=== PATIENT | female | born 1975 | race Hispanic/Latino ===

== ENCOUNTER → 2018-04-03 | Outpatient (CLI) | payer BC | END | disposition home or self-care (01) | LOC: SHCH 13:37 | PROVIDERS: ATTEND Internal Medicine Cardiovascular Disease | DX: I10 Essential (primary) hypertension (principal) | CPT/HCPCS: 93306 ==

== ENCOUNTER → 2018-09-17 | Outpatient (CLI) | payer BC | END | disposition home or self-care (01) | LOC: SHCH 08:23 | PROVIDERS: ATTEND Internal Medicine Cardiovascular Disease | DX: I65.23 Occlusion and stenosis of bilateral carotid arteries (principal) | CPT/HCPCS: 93880 ==

== ENCOUNTER 2018-12-25 09:17 | Day surgery (SDC) | payer BC ==
[2018-12-23 11:36] LABS: APPEARANCE,URINE Clear (CLEAR); BASOPHILS % (AUTO) 0.8 % (0.0-5.0); BILIRUBIN,URINE Negative (NEGATIVE); COLOR,URINE Yellow (YELLOW); EOSINOPHILS % (AUTO) 1.1 % (0.0-8.0); GLUCOSE, URINE (UA) Negative (NEGATIVE); HEMATOCRIT 54.6 % (36-48); KETONES,URINE Negative (NEGATIVE); LEUKOCYTE ESTERASE ,URINE Trace (NEGATIVE); LYMPHOCYTES % (AUTO) 35.9 % (21.0-51.0); MEAN CORPUSCULAR HEMOGLOBIN 28.3 pg (27.0-33.0); MEAN CORPUSCULAR HGB CONC 33.4 g/dL (32.0-36.0); MEAN CORPUSCULAR VOLUME 84.9 fL (79-99); MONOCYTES % (AUTO) 4.3 % (3.0-13.0); NEUTROPHILS % (AUTO) 57.9 % (40.0-77.0); NITRATE,URINE Negative (NEGATIVE); NUCLEATED RED BLOOD CELLS 0.2 % (0.0-0.19); OCCULT BLOOD,URINE Negative (NEGATIVE); PLATELET COUNT (AUTO) 320 K/uL (130-400); PROTEIN,URINE Negative (NEGATIVE); RED BLOOD CELL COUNT(AUTO) 6.43 MIL/uL (4.00-5.50); RED CELL DISTRIBUTION WIDTH 15.4 % (11.0-15.5); WHITE BLOOD COUNT (AUTO) 7.7 K/uL (4.8-10.8)
[2018-12-23 11:43] LABS: CREATININE 0.8 mg/dL (0.5-1.5); POTASSIUM 3.4 mmol/L (3.5-5.1)
[2018-12-23 11:45] LABS: INR 0.96 (0.85-1.15); PROTHROMBIN TIME 10.1 SEC (9.6-11.6)
[2018-12-23 11:56] LABS: B-TYPE NATRIURETIC PEPTIDE 21 pg/mL (0-100)
[2018-12-23 12:17] VITALS: BP 133/74
[2018-12-23 12:18] LABS: BACTERIA,URINE Rare /HPF (None Seen); SQUAMOUS EPITHELIAL CELL,UR Rare /HPF (0-2); WBC,URINE 0-1 /HPF (0-1)
--- NOTE | 2018-12-24 16:43 | NUR ---
ABNORMAL LABS ABNORMAL LABS REPORTED TO RACHID EUGENE H/H 18.2/54.6, POTASSIUM 3.4, UA LEUKEST TRACE, NEG NITRATES, URBC 2-5. ORDERS TO REPEAT BMP IN AM UPON ARRIVAL TO UNIT.
[~2018-12-25] VITALS: Ht 157.5 cm; Wt 90.5 kg
[2018-12-25] VITALS (9 sets, daily range): BP systolic 121–149; BP diastolic 67–90
[~2018-12-25 09:17] MED LIST: AMLO5TAB9 PO; HYDR25TA PO; LOSA100T58 PO
[2018-12-25] MEDS ORDERED: SODIUM CHLORIDE 0.9% 1000ML 1,000 ML IV ONE (09:41)
[2018-12-25 09:45] LABS: POTASSIUM 4.2 mmol/L (3.5-5.1)
--- NOTE | 2018-12-25 11:10 | NUR ---
PATIENT BACK FROM HELICOPTER ENGINEER WITH TR BAND ON RIGHT WRIST Addendum: 12/25/18 at 1515 by ELIS PENNINGTON RN RN ERROR ON PT. DOCUMENTATION.
[2018-12-25] MEDS ORDERED: IOHEXOL 350 MG/ML 100ML INFUS..BTL IV ONE ×2 (13:10→13:11)
[2018-12-25] MEDS ORDERED: IOHEXOL-350 50ML VIAL IV ONE (13:10)
[2018-12-25] MEDS ORDERED: LIDOCAINE HCL 2% 20ML ONE (13:10)
[2018-12-25] MEDS ORDERED: NITROGLYCERIN 5 MG/ML 10 ML VIAL IV ONE (13:10)
--- NOTE | 2018-12-25 15:13 | NUR ---
PT LEFT TO ENVIRONMENTAL PROJECT MANAGER VIA BED BY NATALIIA/JUAN DANIEL
[2018-12-25] MEDS ORDERED: HEPARIN SODIUM 1000UNIT/ML 10ML VIAL ONE (15:39)
[2018-12-25] MEDS ORDERED: FENTANYL CITRATE PF 50 MCG/1 ML 2ML VIAL ONE (15:55)
[2018-12-25] MEDS ORDERED: MIDAZOLAM HCL 1 MG/ML 2ML VIAL ONE (15:55)
[2018-12-25] MEDS ORDERED: DOBUTAMINE 250MG/D5 250ML 250 ML IV ONE (16:09)
[2018-12-25] MEDS ORDERED: SODIUM CHLORIDE 0.9% 1000ML 1,000 ML IV SCH (16:54)
[2018-12-25] MEDS ORDERED: METOPROLOL TARTRATE 1 MG/ML 5ML VIAL IV PRN (17:00)
[2018-12-25] MEDS ORDERED: GLUCAGON 1MG KIT 1 MG ML IM PRN (17:00)
[2018-12-25] MEDS ORDERED: HYDRALAZINE HCL 20 MG/ML VIAL IV PRN (17:00)
[2018-12-25] MEDS ORDERED: ACETAMINOPHEN-CODEINE 300/30MG TAB PO PRN (17:00)
[2018-12-25] MEDS ORDERED: NITROGLYCERIN 0.4 MG SL TAB SL PRN (17:00)
[2018-12-25] MEDS ORDERED: DEXTROSE 50%-WATER 50 ML DISP.SYRIN IV PRN (17:00)
--- NOTE | 2018-12-25 17:48 | NUR ---
RECEIVE PT RECEIVED FROM CAPACITOR REPAIRER VIA BED. UPON ARRIVAL TO ROOM PT COMPLAINING OF TENDERNESS TO CATH SITE WHEN TOUCHED UPON ASSESSMENT. PT STATES SCORE OF 5, PT AWARE THAT SHE WAS GIVEN IV PAIN MED IN [facility]ACIT[facility] REPAIR[facility]. PT POSITIONED COMFORTABLY. PT WILL LET ME KNOW WHEN IN NEED OF PAIN MEDICINE. WILL CONTINUE TO MONITOR PT. CATH SITE TO RIGHT GROIN SOFT, DRESSING DRY AND INTACT, NO OOZING NO HEMATOMA NOTED. INSTRUCTED TO KEEP RIGHT LEG STRAIGHT AND NOT TO ELEVATE HEAD. VERBALIZED UNDERSTANDING.
--- NOTE | 2018-12-25 18:05 | NUR ---
ASSESS CHECKED UP ON PT. PT IS CALM, NOT IN ANY APPARENT DISTRESS. PT STATES SHE FEELS BETTER. CATH SITE REMAINS SOFT, DRESSING DRY AND INTACT, DID NOT COMPLAIN OF TENDERNESS WHEN SITE TOUCHED. NO OOZING NO HEMATOMA NOTED.
--- NOTE | 2018-12-25 18:30 | NUR ---
DIET PT TOLERATED DIET WELL, ASSISTED PT.
--- NOTE | 2018-12-25 19:00 | NUR ---
ASSESS PT SUPINE ON BED, NOT IN ANY APPARENT DISTRESS. PT STATES SHE FEELS BETTER, PAIN TO CATH SITE RELIEVED.
--- NOTE | 2018-12-25 20:00 | NUR ---
DISCHARGE PT DISCHARGED VIA WHEELCHAIR WITH . STABLE. NO COMPLAINTS MADE. CATH SITE REMAINED SOFT. DRESSING DRY AND INTACT, NO OOZING NO HEMATOMA NOTED. DISCHARGE INSTRUCTIONS GIVEN TO , ALSO DEMONSTRATED TO ON HOW TO MONITOR CATH SITE FOR BLEEDING, HEMATOMA. VERBALIZED UNDERSTANDING.
== END 2018-12-25 20:00 | disposition home or self-care (01) ==
LOC: DAH 09:17 → EDSTATUS 10:00 → DAH 20:00
PROVIDERS: ATTEND Internal Medicine Cardiovascular Disease
DX: R09.02 Hypoxemia (principal); R00.2 Palpitations; I10 Essential (primary) hypertension; I36.9 Nonrheumatic tricuspid valve disorder, unspecified; E66.9 Obesity, unspecified; G43.109 Migraine with aura, not intractable, without status migrainosus; Z82.49 Family history of ischemic heart disease and other diseases of the circulatory system; R06.02 Shortness of breath; Z83.3 Family history of diabetes mellitus; Z79.899 Other long term (current) drug therapy; Z68.36 Body mass index [BMI] 36.0-36.9, adult
CPT/HCPCS: 36415 ×2; 71045; 80048 ×2; 81001; 83880; 85025; 85610; 85730; 93005; 93460; 93463; A4606; C1760; C1894 ×4; J1250; J1644 ×2; J2250; J3010; J3490 ×2; J7030; Q9965; Q9967 ×2; 99156; 99157